=== PATIENT | male | born 1990 | race Caucasian/White ===

== ENCOUNTER 2016-11-01 09:14 | Emergency (ER) | payer OTHER ==
[~2016-11-01] VITALS: Ht 185.4 cm; Wt 75.0 kg
[2016-11-01 09:15] VITALS: BP 149/85; PULSE 109; RESP 15; TEMP 98.4; O2SAT 99
--- NOTE | 2016-11-01 09:25 | PD ---
HPI . sore throat, congestion, cough, and fever for 5 days Chief Complaint: ENT Complaint Time Seen by Provider: 09:25 Travel History International Travel<30 days: No Contact w/Intl Traveler<30days: No Traveled to known affect area: No History of Present Illness HPI 26- year old male presents to the ED complaining of cold like symptoms for the past week. He reports it started out with muscle aches, sore throat, and ear pain with his left ear worse than his right. However, he reports in the past few days his symptoms have gotten worse and now include rhinorrhea and coughing. He denies any drainage from his ears or bringing up any sputum with his cough. The patient reports he is having difficulty swallowing. The patient denies any sick contacts and reports that his PCP is Dr. Worrell. [facility] Past Medical History GERD: Yes Social History Alcohol Use: No Tobacco Use: No Substance Use: No Allergies-Medications Reported Meds & Prescriptions Reported Meds & Active Scripts Active Augmentin (Amoxicillin-Clavulanate) 875-125 Mg Tab 1 Tab PO BID Review of Systems General / Constitutional: Positive: Fever, No: Chills, Weight Gain, Weight Loss , Other Eyes: No: Diploplia, Blurred Vision, Photophobia, Drainage, Redness, Foreign Body Sensation, Pain, Tearing, Blind Spots, Visual changes, Blindness, Other HENT: Positive: Sore Throat, Rhinorrhea, Neck Pain, Earache, Other (Difficulty swallowing), No: Headaches, Vertigo, Lightheadedness, Rhinitis, Congestion, Nosebleed, Neck Stiffness, Masses, Gingival Bleeding, Dental Difficulties, Ear Discharge Cardiovascular: No: Chest Pain or Discomfort, Palpitations, Irregular Rhythm, Tachycardia, Diaphoresis, Syncope, Dyspnea on exertion, Varicosities, Edema, Cyanosis, Varicosities, Phlebitis, Claudication, Other Respiratory: Positive: Cough, No: Shortness of Breath, Wheezing, Sneezing, Orthopnea, Hemoptysis, Stridor, Night Sweats, Pleuritic Pain, Other Gastrointestinal: No: Nausea, Vomiting, Diarrhea, Abdominal Pain, Hematemesis, Hematochezia, Constipation, Changes in Bowel Habits, Indigestion, Dysphagia, Loss of Appetite, Other Genitourinary: No: Urgency, Frequency, Dysuria, Nocturia, Hematuria, Decreased Urinary Output, Oliguria, Hesitancy, Dribbling, Incontinence, Pelvic Pain, Flank Pain, Dyspareunia, Discharge, Dysmenorrhea, Menorrhagia, Metorrhagia, Vaginal Bleeding, Other Musculoskeletal: Positive: Myalgias, No: Arthralgias, Limited ROM, Weakness, Cramping, Edema, Pain, Atrophy, Other Skin: No Rash, No Itching, No Dryness, No Lumps, No Hives, No Change in Pigmentation, No Change in nails, No Alopecia, No Lesions, No Breast Lumps, No Breast Tenderness, No Breast Swelling, No Other Neurologic: No: Weakness, Dizziness, Syncope, Focal Abnormalities, Coordination Problem, Tremor, Ataxia, Headache, Change in Mentation, Slurred Speech, Paresthesia, Incontinence, Seizures, Sensory Disturbance, Other Psychiatric: No: Anxiety, Depression, Suicidal Ideations, Disorder of Thought, Mood Disorder, Substance Abuse, Homicidal Ideation, Other Endocrine: No: Heat Intolerance, Cold Intolerance, Polyuria, Polydipsia, Other Hematologic/Lymphatic: No: Easy Bruising, Lymph Node Enlargement, Other Physical Exam Narrative GENERAL: Alert and oriented x 3. NAD. SKIN: Warm and dry. HEAD: Atraumatic. Normocephalic. EYES: Pupils equal and round and reactive to light. No scleral icterus. No injection or drainage. ENT: Uvula is midline. Small swelling forming on the right posterior pharynx, possible early abscess vs tonsillar edema. No nasal bleeding or discharge. Mucous membranes erythematous and moist. NECK: Trachea midline. No JVD. Tender to palpation cervical chain lymph nodes. CARDIOVASCULAR: Regular rate and rhythm. RESPIRATORY: No accessory muscle use. Clear to auscultation. Breath sounds equal bilaterally. GASTROINTESTINAL: Visual inspection appears normal. MUSCULOSKELETAL: Extremities without clubbing, cyanosis, or edema. No obvious deformities. NEUROLOGICAL: Awake and alert. No obvious cranial nerve deficits. Motor grossly within normal limits. Five out of 5 muscle strength in the arms and legs. Normal speech. PSYCHIATRIC: Appropriate mood and affect; insight and judgment normal. Data Data Last Documented VS Vital Signs Date Time Temp Pulse Resp B/P (MAP) Pulse Ox O2 Delivery O2 Flow Rate FiO2 11/01/16 09:15 98.4 109 15 149/85 (106) 99 MDM Medical Decision Making Medical Screen Exam Complete: Yes Emergency Medical Condition: Yes Medical Record Reviewed: Yes Differential Diagnosis Peritonsillar Abscess, Strep Pharyngitis, Influenza, Mononucleosis Narrative Course 26-year-old male here with complaints of cold-like symptoms. On examination patient does appear to have an acute pharyngitis. This could possibly be an early peritonsillar abscess. Uvula is midline and he has no signs of airway or oropharynx compromise. Recommend a course of antibiotics with Augmentin. Advised patient to follow-up with his primary care provider Recommend that if any of his symptoms return or worsen, go to the nearest emergency department. Patient verbalized understanding of instructions, questions were answered, and thanked me for their care. I advised them if their condition worsens, please return to the nearest emergency room for further care. Diagnosis Primary Impression: Acute pharyngitis Qualified Codes: J02.9 - Acute pharyngitis, unspecified Patient Instructions: General Instructions Additional Instructions: Take medications as prescribed. Try salt water gargles. Do not share utensils, toothbrush, etc. If you develop difficulty breathing, please go to the nearest emergency room. Please return to emergency department if your symptoms return or worsen. Follow up with your primary care provider. Take medications as prescribed. Scripts Amoxicillin-Clavulanate (Augmentin) 875-125 Mg Tab 1 TAB PO BID for Infection, #20 TAB 0 Refills Prov: Gonzalo Kate MD 11/01/16 Tianna Rm Nov 01, 2016 09:25
[2016-11-01] MEDS ORDERED: AUGM875T3 PO (09:56)
== END 2016-11-01 10:34 | disposition home or self-care (01) ==
LOC: NEPK 09:14
DX: J02.9 Acute pharyngitis, unspecified (principal); K21.9 Gastro-esophageal reflux disease without esophagitis; H92.03 Otalgia, bilateral; J34.89 Other specified disorders of nose and nasal sinuses; R05 Cough; Z79.899 Other long term (current) drug therapy
CPT/HCPCS: 99283